=== PATIENT | female | born 1955 | race Two or more races ===

== ENCOUNTER 2017-10-22 13:45 | Emergency (ER) | payer OTHER ==
[~2017-10-22] VITALS: Ht 137.2 cm; Wt 68.5 kg
[~2017-10-22 13:45] MED LIST: ACETAMINOPHEN-1 EAC1 ORAL; LISINOPRIL10 MG ORAL
[2017-10-22 13:49] VITALS: BP 162/100
[2017-10-22] MEDS ORDERED: LISINOPRIL20 MG ORAL (13:55)
[2017-10-22 14:15] VITALS: BP 198/105
[2017-10-22] MEDS ORDERED: Metoprolol 5mg/5ml Inj IVP ONE (14:30)
[2017-10-22 14:45] VITALS: BP 224/95
[2017-10-22 15:11] LABS: BASOPHILS % (AUTO) 1.3 % (0.0-2.0); EOSINOPHILS % (AUTO) 1.9 % (0.0-3.0); LYMPHOCYTES % (AUTO) 42.5 % (20.0-45.0); MEAN CORPUSCULAR HEMOGLOBIN 27.6 PG (27.0-31.0); MEAN CORPUSCULAR HGB CONC 31.4 G/DL (32.0-36.0); MEAN CORPUSCULAR VOLUME 88 FL (80-99); MEAN PLATELET VOLUME 5.8 FL (6.5-10.1); MONOCYTES % (AUTO) 8.9 % (1.0-10.0); NEUTROPHILS % (AUTO) 45.5 % (45.0-75.0); PLATELET COUNT 376 K/UL (150-450); RED BLOOD COUNT 5.74 M/UL (4.20-5.40); WHITE BLOOD COUNT 8.9 K/UL (4.8-10.8)
[2017-10-22 15:12] VITALS: BP 198/98
[2017-10-22 15:21] LABS: ANION GAP 11 mmol/L (5-15); CALCIUM 9.2 MG/DL (8.5-10.1); CARBON DIOXIDE 28 MMOL/L (21-32); CHLORIDE 105 MMOL/L (98-107); CREATININE 0.8 MG/DL (0.55-1.30); GLOMERULAR FILTRATION RATE > 60 mL/min (>60); POTASSIUM 4.1 MMOL/L (3.5-5.1); SODIUM 144 MMOL/L (136-145)
[2017-10-22 15:28] LABS: INR 0.9 (0.9-1.1); PROTHROMBIN TIME 9.4 SEC (9.30-11.50)
[2017-10-22 15:34] LABS: ALANINE AMINOTRANSFERASE 59 U/L (12-78); ASPARTATE AMINO TRANSFERASE 31 U/L (15-37); CKMB 0.7 NG/ML (0.0-3.6); TOTAL PROTEIN 8.8 G/DL (6.4-8.2)
--- NOTE | 2017-10-22 15:54 | Emergency Room Report ---
History of Present Illness General Chief Complaint: Hypertension Source: Patient Present Illness HPI The patient is a 62-year-old female presented after increased chest comfort. Patient gradual onset of symptoms. She was noted to have prior history of hypertension. Patient noticed her blood pressure being increasingly elevated. She had not been having any fever. She reports having some pain to the right side of her neck with changes in position. She is reported having some palpitations. She denied any productive cough. She denied any leg pain or swelling. She prior history of hypertension. Allergies: Coded Allergies: NO KNOWN ALLERGIES (Unverified Allergy, Unknown, 10/16/15) Patient History Past Medical History: see triage record Last Menstrual Period: Post Reviewed Nursing Documentation: PMH: Agreed, PSxH: Agreed Nursing Documentation-PMH Hx Hypertension: Yes Review of Systems All Other Systems: negative except mentioned in HPI Physical Exam Vital Signs Date Time Temp Pulse Resp B/P (MAP) Pulse Ox O2 Delivery O2 Flow Rate FiO2 10/22/17 13:49 98.2 81 20 162/100 96 Room Air General Appearance: well appearing, no apparent distress, alert, GCS 15 Head: normocephalic, atraumatic ENT: hearing grossly normal, normal voice Neck: full range of motion, supple Respiratory: no respiratory distress, speaking full sentences Cardiovascular #1: normal inspection, regular rate, rhythm, no edema Gastrointestinal: normal inspection, non tender, no mass Musculoskeletal: normal inspection, back normal, normal range of motion, no calf tenderness Neurologic: normal inspection, alert, oriented x3, responsive, normal gait Psychiatric: mood/affect normal Skin: no rash Medical Decision Making Diagnostic Impression: Primary Impression: Hypertension ER Course Patient presented for chest pain. Because of complexity of patient's case laboratory testing and imaging studies were ordered. Differential diagnosis included but was not limited to acute coronary syndrome, pulmonary embolism, pneumonia, aortic dissection, shingles, pneumothorax, aortic dissection, esophageal rupture, pericarditis. eKG interprety me showed Normal sinus rhythm with rate of [address] or T wave changes.The patient was given IV metoprolol improvement in her blood pressure. Patient was subsequently given IV hydralazine. The laboratory studies were unremarkable.The patient was noted to have evidence of hypertensive urgency. CT the chest read by radiology showed no evidence of aortic dissection. Because of patient's chest pain patient will be hospitalized for further workup. Patient was discussed physician at [facility] who agreed accept in transfer Labs Test 10/22/17 14:50 White Blood Count 8.9 K/UL (4.8-10.8) Red Blood Count 5.74 M/UL (4.20-5.40) Hemoglobin 15.8 G/DL (12.0-16.0) Hematocrit 50.4 % (37.0-47.0) Mean Corpuscular Volume 88 FL (80-99) Mean Corpuscular Hemoglobin 27.6 PG (27.0-31.0) Mean Corpuscular Hemoglobin Concent 31.4 G/DL (32.0-36.0) Red Cell Distribution Width 12.0 % (11.6-14.8) Platelet Count 376 K/UL (150-450) Mean Platelet Volume 5.8 FL (6.5-10.1) Neutrophils (%) (Auto) 45.5 % (45.0-75.0) Lymphocytes (%) (Auto) 42.5 % (20.0-45.0) Monocytes (%) (Auto) 8.9 % (1.0-10.0) Eosinophils (%) (Auto) 1.9 % (0.0-3.0) Basophils (%) (Auto) 1.3 % (0.0-2.0) Prothrombin Time 9.4 SEC (9.30-11.50) Prothromb Time International Ratio 0.9 (0.9-1.1) Activated Partial Thromboplast Time 25 SEC (23-33) D-Dimer 0.47 mg/L FEU (0.00-0.49) Sodium Level 144 MMOL/L (136-145) Potassium Level 4.1 MMOL/L (3.5-5.1) Chloride Level 105 MMOL/L (98-107) Carbon Dioxide Level 28 MMOL/L (21-32) Anion Gap 11 mmol/L (5-15) Blood Urea Nitrogen 24 mg/dL (7-18) Creatinine 0.8 MG/DL (0.55-1.30) Estimat Glomerular Filtration Rate > 60 mL/min (>60) Glucose Level 96 MG/DL (74-106) Calcium Level 9.2 MG/DL (8.5-10.1) Total Bilirubin 0.3 MG/DL (0.2-1.0) Aspartate Amino Transf (AST/SGOT) 31 U/L (15-37) Alanine Aminotransferase (ALT/SGPT) 59 U/L (12-78) Alkaline Phosphatase 112 U/L (46-116) Total Creatine Kinase 88 U/L (26-308) Creatine Kinase MB 0.7 NG/ML (0.0-3.6) Creatine Kinase MB Relative Index 0.7 Troponin I 0.000 ng/mL (0.000-0.056) Pro-B-Type Natriuretic Peptide 37 pg/mL (0-125) Total Protein 8.8 G/DL (6.4-8.2) Albumin 4.4 G/DL (3.4-5.0) Globulin 4.4 g/dL Albumin/Globulin Ratio 1.0 (1.0-2.7) EKG Diagnostic Results Rate: normal Rhythm: NSR ST Segments: no acute changes Rhythm Strip Diag. Results EP Interpretation: yes Rhythm: NSR, no PVC's, no ectopy Last Vital Signs Date Time Temp Pulse Resp B/P (MAP) Pulse Ox O2 Delivery O2 Flow Rate FiO2 10/22/17 15:15 198/98 10/22/17 15:12 98.2 20 96 Room Air 10/22/17 14:58 72 Status: unchanged Disposition: XFER SHT-TRM HOSP Condition: Serious Referrals: [facility],REFERRING (PCP) Juan A Light Oct 22, 2017 15:54
[2017-10-22 18:16] VITALS: BP 155/87
--- NOTE | 2017-10-23 13:01 | Diagnostic Imaging Report ---
Indication: Dyspnea Comparison: None A single view chest radiograph was obtained. Findings: Cardiomediastinal appearance is within normal limits for age. Pulmonary vascularity is somewhat prominent but there is no overt CHF. The diaphragmatic contour is smooth and costophrenic angles are sharp. No pleural effusions are identified. The bones are unremarkable. Impression: No acute findings
--- NOTE | 2017-10-23 16:07 | Diagnostic Imaging Report ---
Indication: Chest pain Technique: Continuous helical transaxial imaging of the chest was obtained from the thoracic inlet to the upper abdomen during rapid intravenous contrast administration. Arterial phase of enhancement obtained. Coronal 2-D reformats were also obtained and maximum intensity projection images in multiple planes. Study obtained in a Siemens sensation [address] Automatic Exposure Control was utilized. Total Dose length Product (DLP): [address] Dose Index Volume (CTDIvol): 0.15, 0.15, 8.1, 8.1, 18.69 mGy Comparison: None Findings: The pulmonary artery is well opacified and shows no filling defects. The lungs are clear. There is no adenopathy, pleural or pericardial effusions are identified. There is no aortic dissection or aneurysm identified within the chest. Visualized part of the upper abdomen demonstrates low-attenuation of the liver, normal spleen size and unremarkable appearance on arterial phase imaging of the kidneys and pancreas. There is no visualized free fluid. Impression: Negative CTA of the chest The CT scanner at [facility] is accredited by the [employer] and the scans are performed using dose optimization techniques as appropriate to a performed exam including Automatic Exposure control.
== END 2017-10-22 18:17 | disposition short-term general hospital (02) ==
LOC: EMR 14:13
DX: R07.9 Chest pain, unspecified (principal); I10 Essential (primary) hypertension
CPT/HCPCS: 36415; 71010; 71275; 80053; 82550; 82553; 83880; 84484; 85025; 85379; 85610; 85730; 93005; 96374; 96375; 99285; J0360; Q9967